=== PATIENT | male | born 1945 | race Caucasian/White ===

== ENCOUNTER 2019-05-27 06:03 | Inpatient (IN) | payer MEDICARE ==
[~2019-05-27] VITALS: Ht 185.4 cm; Wt 84.0 kg
[~2019-05-27 06:03] MED LIST: ALBU8.5H8 INH; ALFU10TA PO; AMOX500C2 PO; FLUT1DIS7 INH; LISI10TA4 PO; METF500T20 PO; PANT-47 PO; STOOL SOFTNER PO; buspirone; indomethacin PO; super beta prostate PO
[2019-05-27] MEDS ORDERED: piperacillin/tazo 3.375gm/50ml 50 ML IV ONE (07:00)
[2019-05-27 07:37] LABS: BASOPHILS # (AUTO) 0.1 X10'3 (0-0.2); BASOPHILS % (AUTO) 0.7 % (0-1); EOSINOPHILS # (AUTO) 0.3 X10'3 (0-0.9); EOSINOPHILS % (AUTO) 3.5 % (0-6); HEMATOCRIT 42.2 % (42.0-52.0); HEMOGLOBIN 14.1 g/dl (14.0-17.9); LYMPHOCYTES # (AUTO) 1.4 X10'3 (1.1-4.8); LYMPHOCYTES % (AUTO) 18.5 % (21-51); MEAN CORPUSCULAR HEMOGLOBIN 30.8 PG (27.0-31.0); MEAN CORPUSCULAR HGB CONC 33.5 g/dL (33.0-36.5); MEAN PLATELET VOLUME 7.7 FL (7.4-10.4); MONOCYTES # (AUTO) 0.8 X10'3 (0-0.9); MONOCYTES % (AUTO) 9.7 % (2-12); NEUTROPHILS # (AUTO) 5.2 X10'3 (1.8-7.7); NEUTROPHILS % (AUTO) 67.6 % (42-75); PLATELET COUNT 200 X10'3 (140-440); RED BLOOD COUNT 4.59 X10'6 (4.70-6.10); RED CELL DISTRIBUTION WIDTH 14.2 % (11.5-14.5); WHITE BLOOD COUNT 7.8 X10'3 (4.5-11.0)
[2019-05-27 09:08] LABS: ALANINE AMINOTRANSFERASE 23 U/L (12-78); ALBUMIN 3.3 G/DL (3.4-5.0); ALBUMIN/GLOBULIN RATIO 0.9 (1.1-1.5); ALKALINE PHOSPHATASE 78 IU/L (46-116); ANION GAP 5 (8-16); ASPARTATE AMINO TRANSFERASE 11 U/L (10-37); BILIRUBIN,TOTAL 0.5 MG/DL (0.1-1.0); BLOOD UREA NITROGEN 17 MG/DL (7-18); BUN/CREATININE RATIO 18.7 (5.4-32.0); CALCIUM 8.9 MG/DL (8.5-10.1); CHLORIDE 106 MMOL/L (99-107); CREATININE 0.91 MG/DL (0.60-1.10); GLUCOSE 103 MG/DL (70-104); POTASSIUM 4.2 MMOL/L (3.5-5.1); SODIUM 140 MMOL/L (135-145); TOTAL CARBON DIOXIDE 28.6 MMOL/L (24-32); eGFR 81 ML/MIN
[2019-05-27] MEDS ORDERED: acetaminophen 325mg tablet PO PRN ×2 (09:40)
[2019-05-27] MEDS ORDERED: magnesium Cl slow-release 64mg tablet PO PRN (09:40)
[2019-05-27] MEDS ORDERED: cefepime 1GM/NS ADD-VANTAGE 100 ML IV SCH (09:40)
[2019-05-27] MEDS: K and/or MAG REPLACEMENT MC SCH (09:40)
[2019-05-27] MEDS ORDERED: magnesium hydroxide 30ml (MOM) UD suspension PO PRN (09:40)
[2019-05-27] MEDS ORDERED: HYDROcodone/acetaminophen 5mg/325mg tablet PO PRN (09:40)
[2019-05-27] MEDS ORDERED: potassium CL 10mEq/100ml bag 100 ML IV PRN ×2 (09:40)
[2019-05-27] MEDS ORDERED: magnesium 2GM in 50ml NS 50 ML IV PRN (09:40)
[2019-05-27] MEDS ORDERED: diphenhydrAMINE 25mg capsule PO PRN (09:40)
[2019-05-27] MEDS ORDERED: potassium Cl 20 mEq SR tablet PO PRN ×2 (09:40)
[2019-05-27] MEDS ORDERED: ondansetron/PF 4mg/2ml inj IV PRN (09:40)
[2019-05-27] MEDS ORDERED: mag hydrox/Alum hydrox/simeth 30ml oral suspension PO PRN (09:40)
[2019-05-27] MEDS ORDERED: magnesium 4gm in 100ml NS 100 ML IV PRN (09:40)
[2019-05-27] MEDS ORDERED: morphine 2 MG/ML inj. syringe IV PRN ×2 (09:40)
--- NOTE | 2019-05-27 09:40 | NUR ---
CALL TO PHARMACY BECAUSE MISSING MAXIPIME IN [place], STATED WILL BRING DOWN.
[2019-05-27] MEDS: normal saline 1000ml 1,000 ML IV SCH ×2 (10:04→20:42)
[2019-05-27] MEDS ORDERED: INDO50CA96 PO (10:25)
[2019-05-27] MEDS ORDERED: DOCU-148 PO (10:25)
[2019-05-27] MEDS ORDERED: IBUP-1984 PO (10:25)
[2019-05-27] MEDS ORDERED: CRAN400C PO (10:25)
[2019-05-27] MEDS ORDERED: MULT-955 PO (10:25)
[2019-05-27] MEDS ORDERED: CARI350T PO (10:25)
[2019-05-27] MEDS ORDERED: ALFU10TA PO (10:25)
[2019-05-27 10:45] LABS: CLARITY,URINE CLEAR (Clear); COLOR,URINE YELLOW (Yellow); GLUCOSE, URINE NEGATIVE (Neg); KETONES,URINE NEGATIVE (Neg); LEUKOCYTE ESTERASE ,URINE NEGATIVE (Neg); NITRITES, URINE NEGATIVE (Neg); OCCULT BLOOD,URINE NEGATIVE (Neg); PH,URINE 6.5 (4.8-8.0); PROTEIN,URINE NEGATIVE (Neg); UROBILINOGEN,URINE 0.2 E.U/dL (0.2-1.0)
--- NOTE | 2019-05-27 10:51 | NUR ---
CALL TO PHARMACY FOR ABX NOT STOCKED IN [place], STATED WILL SEND TECH DOWN.
[2019-05-27 10:53] LABS: UA COLLECTION TYPE CLN CATCH MIDSTREAM
[2019-05-27] MEDS: VANCOmycin 1250MG/NS 250ml Bag 250 ML IV SCH ×2 (11:33→21:46)
--- NOTE | 2019-05-27 12:00 | NUR ---
Patient in room ORTHO 4007. I have received report from ARIADNA REYNA and had the opportunity to ask questions and assume patient care.
[2019-05-27 12:08] VITALS: BP 165/89
[2019-05-27] MEDS ORDERED: insulin Lispro (HumaLOG) vial - multi-dose SQ SCH (13:20)
[2019-05-27] MEDS ORDERED: MESSAGE TO PHARMACY PO ONE (13:20)
[2019-05-27] MEDS ORDERED: glucagon, human recombinant 1mg kit SUBCUT PRN (13:20)
[2019-05-27] MEDS ORDERED: dextrose ORAL solution 15 GM/59 ML bottle PO PRN ×2 (13:20)
[2019-05-27] MEDS ORDERED: dextrose 50%-water 50ml dispensing syringe IV PRN ×2 (13:20)
[2019-05-27] MEDS ORDERED: pneumococcal 23-VAL P-sac vacc 25 mcg/0.5ml vial IMVAC ONE (13:40)
[2019-05-27 13:48] LABS: HEMOGLOBIN A1C 6.1 % (4.5-6.2)
[2019-05-27] MEDS ORDERED: albuterol 2.5 MG/3 ML nebule NEB SCH (15:00)
[2019-05-27] MEDS: HYDROcodone/acetaminophen 10/325mg tab PO PRN ×2 (16:18→20:33)
[2019-05-27] MEDS ORDERED: cefepime 1GM in D5W 50mL 100 ML IV SCH (16:45)
[2019-05-27] MEDS: cefepime 1GM in D5W 50mL 50 ML IV SCH (16:57)
[2019-05-27] MEDS ORDERED: albuterol 2.5 MG/3 ML nebule NEB PRN (17:10)
[2019-05-27 18:00] VITALS: BP 169/79
--- NOTE | 2019-05-27 18:15 | NUR ---
Problems reprioritized. Patient report given, questions answered & plan of care reviewed with MILANA REYNA.
--- NOTE | 2019-05-27 19:00 | NUR ---
Patient in room ORTHO 4007. I have received report from Gracia REYNA and had the opportunity to ask questions and assume patient care.
[2019-05-27] MEDS: budesonide 0.5mg/2ml UD nebule IH SCH (20:02)
[2019-05-27] MEDS: busPIRone 15mg tablet PO SCH (20:28)
[2019-05-27] MEDS: docusate sod 100mg capsule PO SCH (20:29)
[2019-05-27] MEDS: tamsulosin 0.4mg capsule PO SCH (20:29)
[2019-05-27] MEDS: indomethacin 25mg capsule PO SCH (20:30)
[2019-05-27] MEDS: heparin, porcine 5000 units/ml vial SQ SCH (20:35)
[2019-05-27] MEDS: insulin glargine (Lantus) pen - multi-dose SQ SCH (21:00)
[2019-05-27] MEDS ORDERED: INDOMETHACIN 50 MG PO SCH (21:00)
[2019-05-27] MEDS ORDERED: temazepam 15mg capsule PO PRN (21:00)
[2019-05-27 22:00] VITALS: BP 142/69
[2019-05-28] MEDS: cefepime 1GM in D5W 50mL 50 ML IV SCH ×2 (00:13→08:15)
[2019-05-28 06:10] VITALS: BP 120/63
--- NOTE | 2019-05-28 06:30 | NUR ---
Patient in room ORTHO 4007. I have received report from Davey REYNA and had the opportunity to ask questions and assume patient care.
[2019-05-28 07:04] LABS: BASOPHILS # (AUTO) 0.1 X10'3 (0-0.2); BASOPHILS % (AUTO) 0.7 % (0-1); EOSINOPHILS # (AUTO) 0.4 X10'3 (0-0.9); EOSINOPHILS % (AUTO) 4.9 % (0-6); HEMATOCRIT 42.7 % (42.0-52.0); HEMOGLOBIN 14.3 g/dl (14.0-17.9); LYMPHOCYTES % (AUTO) 24.5 % (21-51); MEAN CORPUSCULAR HEMOGLOBIN 31.1 PG (27.0-31.0); MEAN CORPUSCULAR HGB CONC 33.5 g/dL (33.0-36.5); MEAN CORPUSCULAR VOLUME 92.8 FL (78-98); MEAN PLATELET VOLUME 7.5 FL (7.4-10.4); MONOCYTES % (AUTO) 11.9 % (2-12); NEUTROPHILS # (AUTO) 4.8 X10'3 (1.8-7.7); PLATELET COUNT 215 X10'3 (140-440); RED BLOOD COUNT 4.61 X10'6 (4.70-6.10); RED CELL DISTRIBUTION WIDTH 14.2 % (11.5-14.5); WHITE BLOOD COUNT 8.3 X10'3 (4.5-11.0)
[2019-05-28 07:13] LABS: ALANINE AMINOTRANSFERASE 21 U/L (12-78); ALBUMIN 3.2 G/DL (3.4-5.0); ALBUMIN/GLOBULIN RATIO 0.8 (1.1-1.5); ALKALINE PHOSPHATASE 72 IU/L (46-116); ANION GAP 9 (8-16); ASPARTATE AMINO TRANSFERASE 11 U/L (10-37); BILIRUBIN,TOTAL 0.4 MG/DL (0.1-1.0); BLOOD UREA NITROGEN 15 MG/DL (7-18); BUN/CREATININE RATIO 18.1 (5.4-32.0); CALCIUM 8.8 MG/DL (8.5-10.1); CHLORIDE 107 MMOL/L (99-107); CREATININE 0.83 MG/DL (0.60-1.10); GLUCOSE 95 MG/DL (70-104); PHOSPHORUS 2.9 MG/DL (2.3-4.5); POTASSIUM 4.5 MMOL/L (3.5-5.1); SODIUM 142 MMOL/L (135-145); TOTAL CARBON DIOXIDE 26.5 MMOL/L (24-32); TOTAL PROTEIN 7.3 G/DL (6.4-8.2); eGFR > 90 ML/MIN
[2019-05-28] MEDS ORDERED: non-formulary drug (Fluticasone/Salmeterol (Advair 500-50 Diskus) 1 PUFFS) INH SCH (08:00)
[2019-05-28] MEDS ORDERED: alfuzosin 10MG TAB.SR.24H PO SCH (08:00)
[2019-05-28] MEDS ORDERED: busPIRone 15mg tablet PO SCH (08:00)
[2019-05-28] MEDS: K and/or MAG REPLACEMENT MC SCH (08:00)
[2019-05-28] MEDS ORDERED: INDOMETHACIN PO SCH (08:00)
[2019-05-28] MEDS ORDERED: docusate sod 100mg capsule PO SCH (08:00)
[2019-05-28] MEDS ORDERED: BUSPIRONE 15 MG SCH (08:00)
[2019-05-28] MEDS ORDERED: CRANBERRY PO SCH (08:00)
[2019-05-28] MEDS ORDERED: non-formulary drug (Multivitamin (Daily Value) 1 TAB) PO SCH (08:00)
[2019-05-28] MEDS: heparin, porcine 5000 units/ml vial SQ SCH ×2 (08:16→20:14)
[2019-05-28] MEDS: budesonide 0.5mg/2ml UD nebule IH SCH ×2 (08:22→18:59)
[2019-05-28] MEDS: VANCOmycin 1250MG/NS 250ml Bag 250 ML IV SCH ×2 (09:20→22:07)
[2019-05-28 10:00] VITALS: BP 140/77
--- NOTE | 2019-05-28 10:21 | NUR ---
DM consult: Pt with A1c 6.1; DM ed not warranted at this time. Pt admit with right foot cellulitis, currently on heart healthy CHO controlled diet documented with 100% PO intake likely meeting nutrient needs. Will continue to follow. Addendum: 05/28/19 at 10[address] Castañeda RD Amended: Links added.
[2019-05-28] MEDS: normal saline 1000ml 1,000 ML IV SCH ×2 (12:18→18:55)
[2019-05-28] MEDS: cefepime inj. 1 GM in dextrose 5%-water 50ml 50 ML IV SCH (16:15)
--- NOTE | 2019-05-28 17:56 | NUR ---
I paged Dr. Krishnamurthy about patient BP 181/86, He decreased patient fluid to 50/ml per hour and changed lisinopril dose.
[2019-05-28 18:00] VITALS: BP 185/79
--- NOTE | 2019-05-28 18:10 | NUR ---
Patient in room ORTHO 4007. I have received report from MARIBELL Rodriguez and had the opportunity to ask questions and assume patient care.
--- NOTE | 2019-05-28 18:26 | NUR ---
Patient report given to Talita REYNA
[2019-05-28] MEDS ORDERED: lisinopril 10 MG tablet PO SCH (20:00)
[2019-05-28] MEDS ORDERED: multivitamins, therapeutics tablet PO SCH (20:00)
[2019-05-28] MEDS ORDERED: lisinopril 20mg tablet PO SCH (20:00)
[2019-05-28] MEDS: lactobacillus rhamnosus 10,000 MMU CELLS/CAPSULE PO SCH (20:17)
[2019-05-28] MEDS: tamsulosin 0.4mg capsule PO SCH (20:17)
[2019-05-28] MEDS: busPIRone 15mg tablet PO SCH (20:17)
[2019-05-28] MEDS: docusate sod 100mg capsule PO SCH (20:17)
[2019-05-28] MEDS: indomethacin 25mg capsule PO SCH (20:17)
[2019-05-28] MEDS: insulin glargine (Lantus) pen - multi-dose SQ SCH (21:00)
[2019-05-28] MEDS ORDERED: VANCOMYCIN LEVEL IV ONE (21:30)
[2019-05-28 22:00] VITALS: BP 156/76
[2019-05-29] MEDS: cefepime inj. 1 GM in dextrose 5%-water 50ml 50 ML IV SCH ×2 (00:10→08:03)
[2019-05-29] MEDS: normal saline 1000ml 1,000 ML IV SCH (05:00)
[2019-05-29 06:00] VITALS: BP 142/74
[2019-05-29 06:39] LABS: BASOPHILS # (AUTO) 0.1 X10'3 (0-0.2); BASOPHILS % (AUTO) 0.8 % (0-1); EOSINOPHILS # (AUTO) 0.4 X10'3 (0-0.9); EOSINOPHILS % (AUTO) 6.1 % (0-6); HEMATOCRIT 41.3 % (42.0-52.0); HEMOGLOBIN 14.1 g/dl (14.0-17.9); LYMPHOCYTES # (AUTO) 1.5 X10'3 (1.1-4.8); LYMPHOCYTES % (AUTO) 22.4 % (21-51); MEAN CORPUSCULAR HGB CONC 34.2 g/dL (33.0-36.5); MEAN CORPUSCULAR VOLUME 90.9 FL (78-98); MEAN PLATELET VOLUME 7.7 FL (7.4-10.4); MONOCYTES # (AUTO) 0.8 X10'3 (0-0.9); MONOCYTES % (AUTO) 11.3 % (2-12); NEUTROPHILS # (AUTO) 4.1 X10'3 (1.8-7.7); NEUTROPHILS % (AUTO) 59.4 % (42-75); PLATELET COUNT 212 X10'3 (140-440); RED BLOOD COUNT 4.55 X10'6 (4.70-6.10); WHITE BLOOD COUNT 6.8 X10'3 (4.5-11.0)
[2019-05-29 06:40] LABS: ALANINE AMINOTRANSFERASE 22 U/L (12-78); ALBUMIN 2.9 G/DL (3.4-5.0); ALBUMIN/GLOBULIN RATIO 0.7 (1.1-1.5); ALKALINE PHOSPHATASE 67 IU/L (46-116); ANION GAP 6 (8-16); ASPARTATE AMINO TRANSFERASE 14 U/L (10-37); BILIRUBIN,TOTAL 0.4 MG/DL (0.1-1.0); BLOOD UREA NITROGEN 12 MG/DL (7-18); BUN/CREATININE RATIO 14.8 (5.4-32.0); CALCIUM 8.8 MG/DL (8.5-10.1); CHLORIDE 107 MMOL/L (99-107); CREATININE 0.81 MG/DL (0.60-1.10); GLUCOSE 95 MG/DL (70-104); MAGNESIUM 2.1 MG/DL (1.5-2.4); PHOSPHORUS 2.2 MG/DL (2.3-4.5); POTASSIUM 4.2 MMOL/L (3.5-5.1); SODIUM 141 MMOL/L (135-145); TOTAL CARBON DIOXIDE 28.3 MMOL/L (24-32); TOTAL PROTEIN 6.9 G/DL (6.4-8.2); eGFR > 90 ML/MIN
--- NOTE | 2019-05-29 06:49 | NUR ---
Problems reprioritized. Patient report given, questions answered & plan of care reviewed with MARIBELL Paula.
[2019-05-29] MEDS: K and/or MAG REPLACEMENT MC SCH (07:37)
[2019-05-29] MEDS: heparin, porcine 5000 units/ml vial SQ SCH (07:58)
[2019-05-29] MEDS: lactobacillus rhamnosus 10,000 MMU CELLS/CAPSULE PO SCH (07:58)
[2019-05-29] MEDS: budesonide 0.5mg/2ml UD nebule IH SCH (09:49)
[2019-05-29 10:00] VITALS: BP 135/74
[2019-05-29] MEDS ORDERED: AMOX-580 PO (13:39)
[2019-05-29] MEDS ORDERED: LEVO750T21 PO (13:39)
[2019-05-29] MEDS ORDERED: HYDR-3972 PO (13:39)
--- NOTE | 2019-05-29 14:44 | NUR ---
CALLED PRESCRIPTION INTO [facility] IN [place], IV TAKEN OUT, CAITLYN INTACT. PATIENT WHEELED OUT BY SIGNIFICANT OTHER.
[2019-05-29] MEDS ORDERED: VANCOMYCIN LEVEL IV ONE (21:30)
== END 2019-05-29 14:52 | disposition home or self-care (01) | DRG 603 ==
LOC: ER 06:03 → ORTHO 4S 11:54
PROVIDERS: ADMIT Family Medicine; ATTEND Family Medicine
DX: L03.115 Cellulitis of right lower limb (principal); E11.9 Type 2 diabetes mellitus without complications; I10 Essential (primary) hypertension; J45.909 Unspecified asthma, uncomplicated; N40.0 Benign prostatic hyperplasia without lower urinary tract symptoms; G89.29 Other chronic pain; M54.9 Dorsalgia, unspecified; M19.90 Unspecified osteoarthritis, unspecified site; W22.8XXA Striking against or struck by other objects, initial encounter; S91.331A Puncture wound without foreign body, right foot, initial encounter; Z66 Do not resuscitate; Z79.51 Long term (current) use of inhaled steroids; Z79.84 Long term (current) use of oral hypoglycemic drugs; Z79.899 Other long term (current) drug therapy; Z87.891 Personal history of nicotine dependence; Z28.21 Immunization not carried out because of patient refusal; Y93.89 Activity, other specified; Y92.89 Other specified places as the place of occurrence of the external cause; Y99.8 Other external cause status
CPT/HCPCS: 36415; 73630; 80053; 80202; 81003; 82948; 83036; 83605; 83735; 84100; 84145; 84550; 85025; 87040; 87081; 94640; 94760; 96365; 96367; 97161; 97530; 99285; G0378; J0692; J1644; J1815; J2543; J3370; J7030; J7060; J7626

== ENCOUNTER 2020-08-06 12:19 | Inpatient (IN) | payer BC, MEDICARE ==
[~2020-08-06] VITALS: Ht 185.4 cm; Wt 205.0 kg
[~2020-08-06 12:19] MED LIST changes: -ALBU8.5H8 INH; -AMOX500C2 PO; +CARI350T PO; +CRAN400C PO; +DOCU-148 PO; +HYDR-3972 PO; +INDO50CA96 PO; +METF-900 PO; -METF500T20 PO; +MULT-955 PO; -PANT-47 PO; -STOOL SOFTNER PO; -indomethacin PO; -super beta prostate PO
[2020-08-06 13:10] LABS: BASOPHILS # (AUTO) 0.1 X10'3 (0-0.2); BASOPHILS % (AUTO) 0.9 % (0-1); EOSINOPHILS # (AUTO) 0.2 X10'3 (0-0.9); HEMATOCRIT 43.1 % (42.0-52.0); HEMOGLOBIN 14.5 g/dl (14.0-17.9); LYMPHOCYTES # (AUTO) 2.2 X10'3 (1.1-4.8); LYMPHOCYTES % (AUTO) 40.9 % (21-51); MEAN CORPUSCULAR HEMOGLOBIN 30.8 PG (27.0-31.0); MEAN CORPUSCULAR HGB CONC 33.6 g/dL (33.0-36.5); MEAN CORPUSCULAR VOLUME 91.6 FL (78-98); MEAN PLATELET VOLUME 7.6 FL (7.4-10.4); MONOCYTES # (AUTO) 0.4 X10'3 (0-0.9); MONOCYTES % (AUTO) 7.5 % (2-12); NEUTROPHILS # (AUTO) 2.5 X10'3 (1.8-7.7); NEUTROPHILS % (AUTO) 46.7 % (42-75); PLATELET COUNT 252 X10'3 (140-440); RED BLOOD COUNT 4.71 X10'6 (4.70-6.10); RED CELL DISTRIBUTION WIDTH 14.5 % (11.5-14.5); WHITE BLOOD COUNT 5.4 X10'3 (4.5-11.0)
[2020-08-06 13:36] LABS: ALANINE AMINOTRANSFERASE 29 U/L (12-78); ALBUMIN/GLOBULIN RATIO 1.1 (1.1-1.5); ALKALINE PHOSPHATASE 80 IU/L (46-116); ANION GAP 8 (8-16); ASPARTATE AMINO TRANSFERASE 12 U/L (10-37); BILIRUBIN,TOTAL 0.4 MG/DL (0.1-1.0); BLOOD UREA NITROGEN 27 MG/DL (7-18); CALCIUM 9.2 MG/DL (8.5-10.1); CHLORIDE 102 MMOL/L (99-107); GLUCOSE 133 MG/DL (70-104); POTASSIUM 4.8 MMOL/L (3.5-5.1); SODIUM 135 MMOL/L (135-145); TOTAL CARBON DIOXIDE 24.7 MMOL/L (24-32); TOTAL PROTEIN 7.7 G/DL (6.4-8.2); eGFR 46 ML/MIN
[2020-08-06] MEDS ORDERED: aspirin 81mg tab.chew PO ONE (13:40)
[2020-08-06] MEDS ORDERED: FLUT1BLS14 PO (14:39)
[2020-08-06] MEDS ORDERED: LISI10TA PO (14:39)
[2020-08-06] MEDS ORDERED: OXYB10TA30 PO (14:39)
[2020-08-06] MEDS ORDERED: METF-516 PO (14:39)
[2020-08-06] MEDS ORDERED: INDO50CA96 PO (14:39)
[2020-08-06] MEDS ORDERED: ALFU10TA10 PO (14:39)
[2020-08-06] MEDS ORDERED: mag hydrox/Alum hydrox/simeth 30ml oral suspension PO PRN (14:55)
[2020-08-06] MEDS ORDERED: ipratropium/albuterol 3ml nebule NEB PRN (14:55)
[2020-08-06] MEDS ORDERED: regadenoson 0.4mg/5ml syringe IV PRN (14:55)
[2020-08-06] MEDS ORDERED: nitroGLYCERIN 0.4mg SUBLingual tab SL PRN (14:55)
[2020-08-06] MEDS ORDERED: aminophylline 250mg/10ml inj. IV PRN (14:55)
[2020-08-06] MEDS ORDERED: metoprolol tartrate 1mg/ml inj IV PRN (14:55)
[2020-08-06] MEDS ORDERED: magnesium 4gm in 100ml NS 100 ML IV PRN (14:55)
[2020-08-06] MEDS ORDERED: acetaminophen 325mg tablet PO PRN (14:55)
[2020-08-06] MEDS ORDERED: magnesium 2GM in 50ml NS 50 ML IV PRN (14:55)
[2020-08-06] MEDS ORDERED: ondansetron/PF 4mg/2ml inj IV PRN (14:55)
[2020-08-06] MEDS ORDERED: potassium CL 10mEq/100ml bag 100 ML IV PRN ×2 (14:55)
[2020-08-06] MEDS ORDERED: potassium Cl 20 mEq SR tablet PO PRN ×2 (14:55)
[2020-08-06] MEDS ORDERED: insulin Lispro (HumaLOG) vial - multi-dose SQ SCH (20:00)
[2020-08-06] MEDS ORDERED: MESSAGE TO PHARMACY PO ONE (20:00)
[2020-08-06] MEDS ORDERED: dextrose ORAL solution 15 GM/59 ML bottle PO PRN ×2 (20:00)
[2020-08-06] MEDS: K and/or MAG REPLACEMENT MC SCH (20:00)
[2020-08-06] MEDS ORDERED: glucagon, human recombinant 1mg kit SUBCUT PRN (20:00)
[2020-08-06] MEDS ORDERED: dextrose 50%-water 50ml dispensing syringe IV PRN ×2 (20:00)
[2020-08-06] MEDS ORDERED: enoxaparin 40mg/0.4ml syringe SQ SCH (20:00)
[2020-08-06] MEDS ORDERED: insulin glargine (Lantus) pen - multi-dose SQ SCH (21:00)
[2020-08-06 21:20] VITALS: BP 156/72
--- NOTE | 2020-08-06 21:20 | NUR ---
Patient in room ORTHO 4016. I have received report from MARIBELL Campa and had the opportunity to ask questions and assume patient care. Patient sitting up in bed. Requesting shower. No signs of distress. Safety measures in place, bed in low and locked position. Call light and personal items within reach. Will continue to monitor throughout shift.
[2020-08-06] MEDS: docusate sod 100mg capsule PO SCH (21:52)
[2020-08-07] VITALS (9 sets, daily range): BP systolic 123–149; BP diastolic 56–77
[2020-08-07] MEDS ORDERED: FLU VACC QS2020-21(6MOS UP)/PF 60 MCG/0.5 ML SYRINGE IMVAC ONE (06:10)
--- NOTE | 2020-08-07 06:11 | NUR ---
Problems reprioritized. Patient report given, questions answered & plan of care reviewed with MARIBELL Chu.
[2020-08-07 06:32] LABS: BASOPHILS % (AUTO) 0.7 % (0-1); EOSINOPHILS # (AUTO) 0.3 X10'3 (0-0.9); EOSINOPHILS % (AUTO) 4.7 % (0-6); HEMATOCRIT 43.3 % (42.0-52.0); HEMOGLOBIN 14.5 g/dl (14.0-17.9); LYMPHOCYTES # (AUTO) 1.9 X10'3 (1.1-4.8); LYMPHOCYTES % (AUTO) 31.6 % (21-51); MEAN CORPUSCULAR HEMOGLOBIN 30.3 PG (27.0-31.0); MEAN CORPUSCULAR HGB CONC 33.4 g/dL (33.0-36.5); MEAN CORPUSCULAR VOLUME 90.8 FL (78-98); MEAN PLATELET VOLUME 7.4 FL (7.4-10.4); MONOCYTES # (AUTO) 0.6 X10'3 (0-0.9); MONOCYTES % (AUTO) 9.3 % (2-12); NEUTROPHILS # (AUTO) 3.2 X10'3 (1.8-7.7); NEUTROPHILS % (AUTO) 53.7 % (42-75); PLATELET COUNT 225 X10'3 (140-440); RED BLOOD COUNT 4.77 X10'6 (4.70-6.10); RED CELL DISTRIBUTION WIDTH 14.5 % (11.5-14.5)
--- NOTE | 2020-08-07 06:42 | NUR ---
Patient in room ORTHO 4016. I have received report from MARIBELL maxwell and had the opportunity to ask questions and assume patient care.
[2020-08-07 06:56] LABS: ALANINE AMINOTRANSFERASE 28 U/L (12-78); ALBUMIN 3.8 G/DL (3.4-5.0); ALBUMIN/GLOBULIN RATIO 1.1 (1.1-1.5); ALKALINE PHOSPHATASE 75 IU/L (46-116); ANION GAP 7 (8-16); ASPARTATE AMINO TRANSFERASE 15 U/L (10-37); BILIRUBIN,TOTAL 0.4 MG/DL (0.1-1.0); BLOOD UREA NITROGEN 25 MG/DL (7-18); BUN/CREATININE RATIO 22.9 (5.4-32.0); CALCIUM 9.2 MG/DL (8.5-10.1); CHLORIDE 103 MMOL/L (99-107); CHOL/HDL RATIO 2.9 (0.00-4.99); CHOLESTEROL 155 MG/DL (0-200); CREATININE 1.09 MG/DL (0.60-1.10); GLUCOSE 96 MG/DL (70-104); HDL CHOLESTEROL 53 MG/DL (35-60); LDL CHOLESTEROL 93 MG/DL (50-100); MAGNESIUM 2.3 MG/DL (1.5-2.4); POTASSIUM 4.7 MMOL/L (3.5-5.1); SODIUM 138 MMOL/L (135-145); TOTAL CARBON DIOXIDE 28.1 MMOL/L (24-32); TOTAL PROTEIN 7.4 G/DL (6.4-8.2); TRIGLYCERIDES 76 MG/DL (20-135); eGFR 66 ML/MIN
[2020-08-07] MEDS: docusate sod 100mg capsule PO SCH (08:00)
[2020-08-07] MEDS ORDERED: tamsulosin 0.4mg capsule PO SCH (08:00)
[2020-08-07] MEDS: K and/or MAG REPLACEMENT MC SCH (08:00)
[2020-08-07] MEDS ORDERED: oxybutynin 5mg tablet PO SCH (08:00)
[2020-08-07] MEDS ORDERED: lisinopril 10 MG tablet PO SCH (08:00)
--- NOTE | 2020-08-07 09:31 | NUR ---
PAGER ID: [phone] MESSAGE: [phone] THOMAS BARRERA PATIENT NEEDS ATIVAN FOR THE NIDA SCAN ZOYA [id number]
[2020-08-07] MEDS ORDERED: LORazepam 2 mg/ml vial IV ONE (09:55)
--- NOTE | 2020-08-07 09:55 | NUR ---
Page Sent PAGER ID: [phone] MESSAGE: CHAS [id number]: THOMAS BARRERA 4016...PT NEEDS ATIVAN FOR NIDA SCAN
--- NOTE | 2020-08-07 17:36 | NUR ---
DC INSTRUCTIONS GIVEN TO PT, QUESTIONS ANSWERED. TELE REMOVED, IV REMOVED, CANULA INTACT, NO COMPLICATIONS. PT DRESSED SELF AND WAS WHEELED DOWN TO PRIVATE VEHICLE IN STABLE CONDITION.
== END 2020-08-07 16:55 | disposition home or self-care (01) | DRG 205 ==
LOC: ER 12:19 → ED HOLD 14:51 → ORTHO 4S 21:20
PROVIDERS: ADMIT Family Medicine; ATTEND Family Medicine
PROC: 4A02XM4 Measurement of Cardiac Total Activity, External Approach (ICD-10-PCS; principal; 2020-08-07)
PROC: 3E073KZ Introduction of Other Diagnostic Substance into Coronary Artery, Percutaneous Approach (ICD-10-PCS; 2020-08-07)
PROC: 3E02340 Introduction of Influenza Vaccine into Muscle, Percutaneous Approach (ICD-10-PCS; 2020-08-07)
DX: M94.0 Chondrocostal junction syndrome [Tietze] (principal); N17.0 Acute kidney failure with tubular necrosis; J45.901 Unspecified asthma with (acute) exacerbation; I95.9 Hypotension, unspecified; E11.69 Type 2 diabetes mellitus with other specified complication; I27.20 Pulmonary hypertension, unspecified; N13.9 Obstructive and reflux uropathy, unspecified; M19.90 Unspecified osteoarthritis, unspecified site; E86.0 Dehydration; Z82.5 Family history of asthma and other chronic lower respiratory diseases; Z79.899 Other long term (current) drug therapy; Z23 Encounter for immunization; Z83.3 Family history of diabetes mellitus; Z82.3 Family history of stroke; Z85.46 Personal history of malignant neoplasm of prostate; Z87.891 Personal history of nicotine dependence
CPT/HCPCS: 36415; 71045; 78452; 80053; 80061; 82948; 83036; 83735; 83880; 84484; 85025; 87081; 93005; 93017; 93306; 93308; 94760; 96374; 99285; A9500; G0378; J1650; J1815; J2060; J2785; Q2039

== ENCOUNTER 2021-08-29 13:02 | Emergency (ER) | payer MEDICARE ==
[~2021-08-29] VITALS: Ht 188 cm; Wt 75.0 kg
[~2021-08-29 13:02] MED LIST changes: -ALFU10TA PO; +ALFU10TA10 PO; -CARI350T PO; -CRAN400C PO; -DOCU-148 PO; +FLUT1BLS14 PO; -FLUT1DIS7 INH; -HYDR-3972 PO; +LISI10TA PO; -LISI10TA4 PO; +METF-516 PO; -METF-900 PO; -MULT-955 PO; +OXYB10TA30 PO; -buspirone
[2021-08-29 13:40] VITALS: BP 149/72
[2021-08-29] MEDS ORDERED: ketorolac tromethamine 15mg/ml inj. IM ONE (14:00)
== END 2021-08-29 14:29 | disposition home or self-care (01) ==
LOC: ER 13:04
DX: G89.29 Other chronic pain (principal); M54.41 Lumbago with sciatica, right side; J45.909 Unspecified asthma, uncomplicated; E11.9 Type 2 diabetes mellitus without complications; M19.90 Unspecified osteoarthritis, unspecified site; Z85.9 Personal history of malignant neoplasm, unspecified; Z98.890 Other specified postprocedural states; Z79.899 Other long term (current) drug therapy; Z79.1 Long term (current) use of non-steroidal anti-inflammatories (NSAID)
CPT/HCPCS: 96372; 99283; J1885

== ENCOUNTER 2025-02-24 12:50 | Outpatient (CLI) | payer MEDICARE ==
[~2025-02-24 12:50] MED LIST changes: -ALFU10TA10 PO; +ALFU10TA47 PO
--- NOTE | 2025-02-27 15:51 | CONSULTATION ---
DATE OF CONSULTATION: 02/24/2025 DICTATING PHYSICIAN: Goldie Jeffrey M.S., [facility] TECHNICIAN MODIFIED BARIUM SWALLOW STUDY REPORT REFERRING PHYSICIAN: Guanako Kelley MD HISTORY OF PRESENT ILLNESS: The patient is an 79-year-old male and consents to this evaluation. The patient's granddaughter was present for this evaluation. In history obtained from the patient, the patient's granddaughter and medical records, the patient reports with symptoms of dysphagia including feeling that the items that he eats get stuck in his throat at the level of the clavicle and he has to take a lot of water in order to push these items down his throat. He notes that this has been occurring for the past 3 years, but has gotten worse in the last 6 months. He also notes voice changes for the last 3 months. The patient was seen by Dr. Kelley, ENT on 01/18/2025 for a flexible fiberoptic laryngoscopy, which was normal. The patient notes that when he is eating, he has to chew his food more carefully. He denies weight loss. He also reports that he was in the hospital in December due to lung difficulties and that he has a diagnosis of COPD. CURRENT DIET: In terms of caffeine, the patient has 2 cups of coffee in the morning and then 2-3, 14-ounce bottles of tea throughout the day. He also occasionally has Diet Coke and he rarely has water. He does not utilize tobacco products. He very seldom has a beer. The pt puts a tsp of chocolate in his coffee in the morning. In terms of dairy products, the patient has a glass of milk in the evening and cheese. He used to have ice cream on a daily basis, but he has recently cut this out. A typical breakfast consists of pancakes. A typical lunch is half a sandwich. He snacks in the afternoon on cookies. Dinner is at 5 p.m. and may be items such as soup or stuffed velez pepper. Dessert used to be his ice cream, which he recently cut out, but he will now have fruit cups or cookie and he goes to bed at 7 p.m. MEDICATIONS: Magnesium 400 mg, montelukast 10 mg, albuterol sulfate HFA 90 mcg/actuation aerosol inhaler, alfuzosin ER 10 mg extended release 24 hours, fluticasone 500 mcg-salmeterol 50 mcg/dose, blister powder for inhalation p.r.n., indomethacin 50 mg, lisinopril 10 mg, cefdinir 300 mg, Zyrtec 10 mg, metformin 500 mg, oxybutynin 10 mg, cetirizine 10 mg. PARAMETERS: The patient is seated in a lateral 90-degree view and administered the usual protocol of thin and nectar thick liquids, puree, and solid consistencies as well as self-regulated boluses of thin liquids from a cup. RESULTS: In the oral stage of the swallow, the patient is easily able to transfer the bolus from the anterior to the posterior oral cavity. There does not appear to be any difficulty with strength or range of motion of the tongue. In the pharyngeal stage of the swallow, tongue base retraction is within functional limits. Anterior movement of the posterior pharyngeal wall is observed. There is a delayed swallow initiation for thin liquids to the level of the piriform. Elevation of the hyothyroid complex is accomplished with moderately reduced epiglottic inversion and anterior and superior movement for the hyoid. It was noted that epiglottic inversion was decreased for thin liquid, but with heavier consistencies, the epiglottis would fully invert. There was a mild pharyngeal residue at the level of the vallecula and PES opening was within functional limits. At no time was the patient noted to penetrate or aspirate on any of the bolus sizes or consistencies. ANTERIOR, POSTERIOR VIEW: In the AP plane, there appeared to be a slight deficit with piriform sinus on the left side as more of the bolus filtered through the right piriform sinus; however, both were functioning and no proximal movement of the bolus was observed at this time. IMPRESSION: The patient demonstrates what appears to be a mild pharyngoesophageal stage swallowing disorder characterized by delayed swallow initiation for thin liquid boluses at the level of the piriformis and a slight left piriform sinus dysfunction. A neurological component to the swallow cannot be ruled out due to the patient's delayed swallow initiation for the thin liquid boluses and decreased epiglottic inversion for thin liquid boluses as well. There is also a possibility that the patient's symptoms could have been related to proximal movement, but with the recent elimination of dairy from his diet that this has been recently resolving. DIAGNOSES: R13.14 dysphagia, pharyngoesophageal phase; R49.0 dysphonia; R05.9 cough. PATIENT EDUCATION: Immediately following modified barium swallow study, the patient and granddaughter were able to view the results. The patient was able to see the delayed swallow initiation and decreased epiglottic inversion. The patient was educated on a recommendation to continue cutting out the ice cream in his diet and if he does not notice further changes in his swallowing in a few weeks to also start to eliminate caffeine as there is a potential for laryngopharyngeal reflux, but that the strength of the swallow is within functional limits. RECOMMENDATIONS: * It is recommended that the patient continue to cut out ice cream from his diet and if he continues to have symptoms to consider cutting out caffeine as well. * It is recommended that should the patient continue to have difficulty with his swallowing following these dietary modifications that he be considered for a neurological consult as a neurological component to his swallow cannot be ruled out due to the delayed swallow initiation and apparent sensitivity to bolus consistency for epiglottic inversion. LONG-TERM GOALS: The patient will maintain adequate hydration/nutrition with optimum safety and efficiency of swallow function on p.o. intake without overt signs and symptoms of aspiration for the highest possible diet level. FUNCTIONAL ORAL INTAKE: The FOIS was administered to establish and document a change in the functional eating activities of this patient over time. This is a 7-point scale with 1 indicating no oral intake and totally tube dependent and 7 indicating total oral intake with no restrictions. This patient received a 6, which indicates he has a total oral diet with multiple consistencies without special preparation but with specific food limitations and precautions. G-CODE: [id number]. Thank you very much for asking me to participate in the care of this kind patient. Should you have any questions regarding this evaluation or recommendations, please do not hesitate to contact me at [phone]. During this examination, 3.02 minutes of fluoroscopy time and 16.81 CAK mGy were utilized. Goldie Jeffrey M.S., [facility] TECHNICIAN TID: [id number] RECEIPT: [id number] [facility]/KARTHIK PARSON
== END 2025-02-24 23:59 | disposition home or self-care (01) ==
LOC: RAD 12:50
PROVIDERS: ATTEND Otolaryngology
DX: R13.14 Dysphagia, pharyngoesophageal phase (principal)
CPT/HCPCS: 74230